=== PATIENT | male | born 1980 | race Caucasian/White ===

== ENCOUNTER → 2017-03-07 | Day surgery (SDC) | payer OTHER ==
[~2017-03-07] VITALS: Ht 177.8 cm; Wt 85.3 kg
[~2017-03-07] MED LIST: MOTRIN800 MG PO
--- NOTE | 2017-03-07 17:09 | RADIOLOGY REPORT ---
EXAMINATION: XR LUMBAR SPINE CLINICAL INFORMATION: Osbaldo- lumbar laminectomy at L5-S1. COMPARISON: Lumbosacral spine done on 01/07/2017. TECHNIQUE: Single crosstable lateral radiograph of the lumbosacral spine was performed at the time of the surgical procedure, done in the OR. FINDINGS: A radiopaque linear devices identified with its tip projecting at the level of spinous process of L5. IMPRESSION: A radiopaque linear devices identified with its tip projecting at the level of the spinous process of L5.
--- NOTE | 2017-03-07 23:30 | Operative Report ---
Operative/Inv Procedure Report Surgery Date: 03/07/17 Name of Procedure: 1) L5-S1 Right Hemilaminotomy And Discectomy (Kwasi/Talisha Yanez) Pre-Operative Diagnosis: Primary Surgically Treated Diagnoses: 1) Right L5-S1 Lumbosacral Intervertebral Disc Disorder With Radiculopathy 2) Right Lower Extremity Distal (Extensor Hallucis Longus And Anterior Tibialis) Subjective And Objective Motor Neurological Deficit 3) Right Lower Extremity Mild Foot Drop 4) Right Lower Extremity Mild Toe Drop 5) S1 Right Lower Extremity Lumbosacral Distribution Radiculopathy (Pain, Motor Deficit And Sensory Deficit) Potentially Now Independent Of Causal Intervertebral Disc Disorder 6) Right Lower Extremity Hypoesthetic Disturbance Of Skin Sensation 7) Right L5-S1 Displacement Of Lumbosacral Intervertebral Disc 8) L5-S1 Degeneration Of Lumbosacral Intervertebral Disc Post-Operative Diagnosis: Same as preoperative diagnosis list Estimated Blood Loss: less than 50ml Surgeon/Furrier Apprentice: NEELA VILLALPANDO MD - Primary Admitting Orthopaedic Surgeon Surgical Providers: Neela Villalpando M.D. - Orthopaedic Spine Surgeon Ashley Yanez P.A.-C - Chargeback Analyst Anesthesia: general endotracheal tube Monitors: Standard general anesthesia and other perioperative monitoring was performed per anesthesia protocols. Refer to anesthesia monitoring records for details. IV Fluids: Standard anesthesia fluid management was performed without requirement for additional or emergent fluid resuscitation. Refer to anesthesia records for details. Implants: Implants Placed: None Graft Placed: None Urine Output: Refer to anesthesia records for details. Drains: None Specimens: Removed lumbar disk fragments were sent to pathology for analysis per hospital protocol. Complications: None Condition: Initial Preoperative Condition: The patients condition was stable to the operating room without vital sign, hemodynamic, cardiopulmonary or other organ system abnormality and without new neurovascular or musculoskeletal functional deficit compared to stable baseline of preoperative distal right lower extremity sensory and motor deficit noted on orthopaedic spine surgical office as well as admission history and physical evaluations. On assessment in the preoperative holding area the patient had some improved motor function and was able to briefly generate 5/5 strength to manual testing against resistance which he had not been able to demonstrate previously. This was likely related to his recent epidural injection. Unfortunately, he still had early giveway of anterior tibialis, extensor hallucis longus and gastrocsoleus against sustained resistance, has persistent, dense and unchanged sensory deficit in the posterolateral distribution to the foot and toes, notes persistent ambulatory and activity limitation and reports steady return to baseline weakness even over the short duration since his epidural injection. He has elected to proceed with discectomy. Given his prolonged deficit with return of weakness since epidural, radiologic findings of significant neural compression and only partial, temporary and insufficient improvement with optimized conservative management, this decision to proceed with surgical intervention is quite reasonable. The patient was cleared preoperatively as optimized for surgery by his primary care physician and consulting facility planner prior to admission. There were no significant adverse changes evident in the patients condition between the clearance admission history & physical evaluations and the immediate preoperative assessment. Intraoperative Condition: The patient was stable throughout the procedure without vital sign, cardiopulmonary or other anesthesia monitoring changes, lability, instability or abnormality. Final Postoperative Condition: The patient was extubated and stable to the recovery room with no new deficit or adverse change compared to stable baseline preoperative neurological and musculoskeletal assessment based on limited evaluation during initial recovery from anesthesia. The patient demonstrated grossly normal spontaneous motion initially as well as later normal motion and function to command in both upper and distal lower extremities once fully awake upon early recovery from anesthesia. On postoperative neurological assessment the patient reported subjective partial improvement compared to his preoperative sensory and motor deficits and this improvement was confirmed on objective sensory evaluation and manual motor testing with improved light touch sensation and sustained 5/5 distal right lower extremity motor function demonstrated even at this early timepoint. There was no swelling, erythema, tenderness, pain with either active or passive motion or any other symptom or finding to suggest a concerning process involving the superficial or deep cutaneous, subcutaneous, muscular, vascular or other tissues related to the immobilization or localized pressure of prolonged prone positioning for surgery. His pain was well controlled during initial recovery. Operative Indication: Danny Garcia is a 37 year old healthy white male who presents today for L5 -S1 right hemilaminotomy, discectomy and neural element decompression to address severe right lower extremity radiating pain, distal numbness and distal EHL/AT weakness with partial footdrop and some claudicating ambulatory worsening of symptoms, mild gait abnormality and additional functional deficits (particularly related to his vigorous activity requirements at work) secondary to large right L5-S1 disk herniation causing significant traversing and exiting neural element compression at that level documented on MRI. This condition became acutely symptomatic several months ago related to and consistent with a reported heavy lifting injury at home. He denies any prior history of severe or incapacitating back pain and has never had any prior radiating symptoms. He does report prior history of mild, activity-related back pain consistent with additional findings of lower lumbar degenerative change on radiologic studies. He was unaware of these findings previously and reports no history of associated trauma, injury, event or change in activity which might be associated. He also reports no previous functional limitation or need for evaluation and treatment related to the chronic degenerative findings. 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 Based on the likely outcome of further nonoperative versus operative treatment, he has very reasonably chosen to proceed with surgical discectomy for decompression. The patient's preoperative lumbar spine radiologic workup (including static and dynamic radiographs as well as MRI scan) showed the above noted severe right canal and lateral recess soft tissue stenosis and neural compression secondary to a very large right L5-S1 extruded disk herniation fragment consistent with the patient's current presenting clinical condition including symptoms ( radiating pain, sensory loss, weakness and ambulatory changes), physical examination findings (objective distal right lower extremity sensory and motor deficits) and functional deficits. The radiologic findings are also consistent with the persistence of his condition and his failure to improve with conservative care. Standard preoperative laboratory studies for this young male patient were unremarkable. The patient has sufficiently severe and progressively worsening clinical condition (symptoms and exam findings listed above) related to this condition, has failed a comprehensive conservative management program despite excellent compliance, has close correlation between clinical presentation and preoperative studies, is medically optimized for surgical intervention, understands and accepts the limitations, uncertainties and risk of surgery, appears to have appropriate goals for surgical outcome, and is more likely to achieve those goals with the planned surgical procedure than with other options for treatment thus making him a reasonable candidate for surgical intervention. The patient has a positive medical history of Prinzmetal's angina with a negative angiogram 10 years ago and no symptoms since that time. He has now had a negative evaluation and full cardiology clearance within the last week for the currently planned surgical procedure. He reports no other significant or pertinent past medical history. He reports no significant past surgical history pertinent to his current surgical treatment. He denies any complications, adverse events or outcomes associated with previous procedures, tests or interventions. His current and active medications include Flexeril, Meloxicam and Gabapentin. He denies any adverse effects from any of these medications. He denies any history of anaphylactic, anaphylactoid, allergic or non-allergic reactions or sensitivities to medications, foods or skin contact environmental allergens. He is a 2 pack per day smoker, reports other smoking history as well (see office notes for details), consumes several highly caffeinated beverages ( "energy drinks") per day and consumes 2-3 beers per day but denies other alcohol consumption, other drug use or other social risk factors. His reported social history is not likely to be significant as it relates to his perioperative or other orthopaedic spine care. The patient has been temporarily totally disabled since his injury and that status will likely continue until he has completed the initial (6 week) recovery phase at which time restricted ("light duty") work return will be considered and he will likely be able to progress back to unrestricted ("full duty") work status by 3 months after surgery. The above clinical information was reviewed throughout the hospital admission and preoperative confirmation process but did not alter surgical recommendations, treatment plans or perioperative management in this case. Treatment options were discussed in detail directly with the patient. After careful and appropriate consideration he elected to proceed with the planned operative procedure of L5-S1 right hemilaminotomy, discectomy and neural element decompression. He also consented to any additional indicated procedure based on intraoperative findings. In addition to the general risks of all surgical procedures (bleeding, infection, anesthesia and other general risks), specific risks of the planned procedure were reviewed with the patient including but not limited to tissue injury or exacerbation of prior injury (spinal cord, nerve root, peripheral nerve, meningeal, blood vessel, bone, disk, joint, muscle, tendon, ligament or other tissue injury), meningeal tear, spinal fluid leak, fracture of spinal elements, worsening of spinal alignment, abnormal ( hypertrophic, heterotopic or ectopic) bone or scar formation, new or persistent- exacerbated symptoms (pain, dysesthesias, paresthesias, headaches), development of new or worsening of preexisting medical conditions or complications ( arthritis, blood clots, cardiac events, stroke, acute organ failure of any organ , other medical conditions potentially worsened by trauma, surgery, anesthesia or immobility), inability to complete the procedure as planned, and need for reoperation at the current or a future related site (including possible surgeries for degenerative processes documented at the current and adjacent lumbar levels). Potential for partial or complete, global or regional loss of motor, sensory, coordination, ambulatory, balance, bladder, bowel or sexual function was reviewed. Remaining potential complications were reviewed in inclusive risk categories ranging through all severity levels from temporary changes to catastrophic outcomes such as complete paralysis, organ failure, disfigurement or . The patient understood and accepted that his risk was slightly above average for this procedure compared to his age and clinical cohort due to his severity of pre-operative symptoms, significant and progressive pre-operative subjective and objective right lower extremity deficits, severity of neural element compression on MRI and the post-traumatic nature of his condition with potential long-term and as yet occult involvement of other levels and structures. He also understood that his risk of personally significant functional limitation following surgery was higher than most patients because of multilevel (albeit mild to moderate) degenerative disease at his young age, his vigorous desired level of baseline activity and the vigorous level of function required for his job. On the other hand, his average frame and body habitus with history of excellent exercise compliance likely mitigates some of this increased risk. He also understood and accepted that the purpose of surgery is to minimize the chance for further progression of symptoms and neurological deficit and that his current preoperative deficits may be permanent. The patient is an active smoker and the potentially severe implications of continued smoking on surgical recovery, functional recovery and general health were reviewed in detail. Signed operative consent was obtained directly from the patient with good understanding of all reasonable alternatives, indications, goals, expectations, limitations, risks and benefits of the planned procedure. He consented to all phases of the procedure being performed by Dr. Villalpando with the assistance of all designated hospital and outpatient practice team members. He was cleared preoperatively as optimized for surgery by his primary care physician (Lilia Cool M.D.), all requested consulting medical subspecialists including his new facility planner (Kolby Cardenas M.D.) and primary surgeon office evaluation prior to admission. Preoperative arrangements were made to follow all clearance evaluation recommendations. In the preoperative evaluation area, the patient confirmed his oral intake status as NPO since midnight prior to surgery. Operative/Procedure Note Note: Preoperative Holding Area Assessment/Preparation: The patient was evaluated in the preoperative holding area prior to surgery and no clinical changes or contraindications to surgical intervention were documented compared to the preoperative office and clearance evaluations except as noted in the "Initial Preoperative Condition" section above. There were no multiple, bilateral or sacral root distribution sensory, motor, coordination, ambulatory or other functional changes reported and no sensory, motor or abnormal reflex findings noted on preoperative examination to suggest acute increase in neural element compression that might be associated with increased neurological intraoperative risk based on preoperative assessment. The surgical plan and site were confirmed with the patient and preoperative paperwork was finalized. The region of the intended surgical site was cleansed, prepped and marked per protocol. The primary surgeon, anesthesia care team members, and operating room staff confirmed the patient identity, surgical procedure, and operative site as well as other clinical details with the patient in an initial documented preoperative confirmation (awake time out) prior to the administration of sedation or anesthesia. Surgical Procedure: The procedure was performed by Dr. Villalpando who was present and served as the primary surgeon for all critical intraoperative and perioperative decisions and interventions. The assistance of a specialty trained surgical physician pier master assistant was critical for safe completion of all phases of the procedure, particularly for maintenance of clear visualization in the operative field and for protected neural element retraction. Ashley Yanez P.A.-C assisted throughout each critical phase of the procedure. Set-Up/Positioning/Exposure - The patient was brought to the operating room in stable condition and underwent uncomplicated induction of general anesthesia, intubation, and placement of all appropriate monitors, lines and catheters without difficulty. Administration of 2 grams of IV Ancef based on patient body mass was given for surgical prophylaxis and was completed at least 30 and less than 60 minutes prior to making an incision. The patient was positioned prone on the standard operating table outfitted with a rigidly attached Cloward frame in typical fashion for a lower lumbar discectomy taking care to protect and stabilize the spine during transfer, avoid positions of nerve stretch, pad all pressure points, and support the head without any pressure on the eyes using a foam head rest. In this case, in order to accommodate the patient's specific upper body anatomy, a rolled blanket was placed transversely under the chest which provided additional torso elevation and in turn allowed optimized neutral head and neck positioning. The arms were abducted less than 90 degrees at the shoulders, flexed less than 90 degrees at the elbows and supported on well-padded arm-boards with additional foam padding from the axillary regions to the hands with all pressure points either fully padded or supported without any contact at all between pads. The primary surgeon, anesthesia care team, and operating room staff again documented the patient identity, surgical procedure, and operative site as well as other clinical details in a final documented confirmation (final time out) prior to beginning the procedure. Loupe magnification was used throughout the appropriate portions of the procedure. After sterile prep and drape, an incision was mapped, infiltrated with 0.5% Marcaine local anesthetic with epinephrine, and made extending longitudinally from the superior tip of the S1 spinous process to the superior tip of the L5 spinous process overlying the intended L5-S1 operative level. Hemostasis was achieved using Bovie and Bipolar electrocautery beginning with the incision and continuing throughout the procedure with settings appropriate to each progressive level. The lumbosacral fascia was divided over the right side of the L5 and superior S1 spinous process tips as well as the bridging interspinous ligament segment using the Bovie electrocautery which was also used to maintain hemostasis throughout the exposure. Care was taken to preserve the interspinous ligament so as to maintain optimal postoperative stability and motion segment ligamentous tension. The dissection was then carried down the right side of the middle and inferior L5 spinous process, the interspinous space and the superior margin of the S1 spinous process and then extended laterally to expose the corresponding laminae and interlaminar space at that level out to the medial edge of the right L5-S1 facet capsule which was preserved. The Franklin retractor was placed with lateral blunt serrated ("toothed") blade and medial interspinous hook of appropriate length to provide optimal retraction and visualization. The intended hemilaminotomy and discectomy level was marked with a curved curette placed under the inferior leading edge of the superior lamina and confirmed to be at the intended interspace on cross-table lateral radiograph. Intraoperative findings of multilevel lower lumbar moderate degenerative disk disease correlated well with the preoperative radiographic studies and no obvious interval change or additional abnormality was noted. The alignment of the spine on this intraoperative localization radiograph was noted to be normal and unchanged from preoperative studies. Hemilaminotomy/Discectomy/Decompression - The lateral margin of the right pars interarticularis of L5 was identified so as to ensure that the hemilaminotomy was tapered sufficiently to avoid thinning or destabilization of this region. Right L5 inferior hemilaminotomy was performed by thinning the inferior edge of the right L5 lamina in a tapered fashion using the [employer] Subhash drill followed by piecemeal resection of the deep laminar cortex using Kerrison rongeurs after dissecting under the leading edge with a curved curette to free any underlying adhesions. The inferior right hemilaminotomy of L5 was sufficient to adequately and safely access and decompress the right side of the canal at the L5-S1 level in this case and so no additional interlaminar hemilaminotomy (with resection of the superior margin of S1) was required. The L5 hemilaminotomy was carried out laterally to the level of the medial margin of the facet superficially and to the level of the medial wall of the S1 pedicle within the canal taking care not to violate the posterior facet capsule or excessively thin the pars interarticularis. This dissection provided sufficient canal access in this patient such that no partial medial facetectomy was required for additional exposure. The cephalad edge of the ligamentum flavum was dissected from its laminar attachment and elevated with a curved curette to ensure that there were no epidural adhesions dorsally. The ligamentum was further released laterally and reflected medially providing sufficient access to the canal and room for nerve mobilization to allow safe removal of the very large disk fragment. A #2-0 Vicryl suture was placed through the freed lateral edge of the ligament, tagged with a snap and used to retract the elevated ligamentum medially in a "ligamentum sparing" technique. This provided excellent exposure of the canal with full visualization and safe access to the elevated and compressed lateral thecal sac and traversing nerve root at this level while preserving the ligamentous flap which was returned to its anatomic position as a physiologic covering of the laminotomy opening at the end of the procedure. Attention was then turned to the perineural dissection and safe mobilization of the neural elements for exposure of the compressive disk herniation. On initial visual evaluation, the traversing nerve root and lateral thecal sac were seen to be obviously dorsally displaced and flattened ventrally by passage over the large underlying herniated disc fragment which appeared to have both significantly extruded into the canal (associated with direct traversing neural structure meningeal contact) and also partially migrated in a pocket beneath the posterior longitudinal ligament behind the L5 and S1 vertebral bodies ( associated with indirect exiting neural element compression) consistent with the preoperative clinical presentation and MRI findings. The direct contact of the disk material with the meninges was associated with focal areas of ventrolateral nerve root erythema, inflammation and irritation suggestive of chemical as well as compressive radiculopathy and consistent with the severity, chronicity and poor response to conservative measures of the patient's symptoms confirming the indications for surgery. All of these findings also suggested that improvement would have been unlikely with further conservative management and without surgical intervention. The large size of the extruded disk herniation fragment with extension outside of the normal confines of the disk space and even some migration beyond the motion segment behind the vertebral body along with its chronicity and inflammatory response was associated with moderate epidural fibrosis and therefore necessitated more extensive dissection (and consequently more careful and extensive protection of the neural elements) as well as more operative time than usual for a typical discectomy procedure. Although neurolysis was felt to be significantly increased compared to the average, the fibrotic adhesions did not appear to cause separate tethering or compression of the neural elements, and therefore this additional dissection was still deemed to be consistent with a standard discectomy procedure. No separately coded neurolysis procedural service was required in this case. Gentle palpation and careful dissection with a [place] 4 and limited epidural neurolysis was sufficient to safely mobilize the neural elements, optimally access the more ventral large extruded disk fragment in the lateral recess and safely perform decompressive discectomy. A [place] 4 was used to dissect down the superomedial wall of the S1 pedicle to the floor of the canal thus defining a safe plane for dissection and neurolysis where necessary. This dissection was then carried superiorly where the disk space was identified and gently dissected free of adhesions over the top of the extruded disk herniation covered with an adherent but not tethering fibrotic capsule. A safe plane was identified lateral to the traversing nerve root just above the S1 pedicle, caudal to the extent of extruded disc fragment and epidural fibrosis. Dissection was then carefully carried superiorly within that safe dissection plane to fully free the traversing root from the disk herniation and fibrous capsule so as to adequately mobilize it for retraction. The traversing nerve was found to be under considerable tension during dissection based on intraoperative palpation and so care was taken to avoid excessive retraction and debulk the underlying compressive disk fragment as soon as adequate neural protection and disk fragment exposure had been achieved. Once this had been safely achieved the dissection was carried medially over the large extruded fragment until the traversing root could be retracted sufficiently to access the exposed tail of the extruded portion of the herniation fragment projecting through a rent in the encasing fibrotic capsule and causing direct neural contact. After initial dissection and neural element mobilization this dorsolateral projection of the extruded disc herniation fragment was visualized and gently manipulated through the rent in the fibrotic capsule until the primary extruded fragment could be debulked from its encapsulated position using a pituitary rongeur. Ultimately, a majority of the large extruded fragment was removed from the fibrotic pocket in two large pieces (each approximately 15 x 8 x 3 mm in size). This fragment resection resulted in visible decompression of the previously elevated traversing root and thecal sac. This debulking allowed further careful perineural dissection all the way to the ventral midline with significantly less tension on the traversing neural elements thus minimizing risk of injury. The axilla of the traversing root was checked and no fibrotic tethering was found that might cause acute angle "kinking" or other focal compression at the exit of the nerve from the thecal sac. Thus there was no significant dissection required in the axillary zone. With the perineural dissection, neurolysis and resection of extruded fragment complete, the neural elements could be safely further retracted so as to allow extension of the traumatic annulotomy followed by final discectomy of any remaining disk herniation fragments and all loose intradiscal fragments using standard technique. Epidural hemostasis was achieved using Bipolar electrocautery and gentle packing of the epidural space with small volume of Thrombin soaked Gelfoam held with Patties which also provided some medial retraction of the neural elements for optimal exposure of the disk space. The traversing nerve root and thecal sac were gently retracted with a Love nerve root retractor to expose the disk space while protecting the neural elements. The subligamentous pocket formed behind the L5 and S1 vertebral bodies by the dissecting portion of the large disk fragment was explored using an Brianna curette to ensure that there were no additional sequestered fragments and none were found. A minimal linear extension of the traumatic annulotomy was performed using a # 11 scalpel blade to optimize disk space access. Interspace discectomy was then performed to remove a few loose intervertebral disc fragments using straight and angled pituitary rongeurs taking care to carry the discectomy laterally within the disk space ventral to the foramen so as to completely decompress both the intra- and extra-foraminal spaces, in addition to the lateral recess and central canal. The disk material was found to be structurally normal in this subforaminal zone. All loose or non-physiologic disk material was removed from all disk space zones while preserving as much palpable structurally intact disk as possible. Only a few small fragments were removed from the central and lateral regions and no large or compressive loose fragments were found either centrally or laterally. By palpation the large resected herniation fragment left a moderate-sized right paracentral defect in the disk space, however the remainder of the adjacent disk material, although degenerative and somewhat fibrotic in consistency (correlating with radiologic findings), was overall of fairly normal integrity by palpation and there were no nucleus, annulus or cartilaginous endplate defects palpated adjacent to the central defect or in the peripheral zones. Once the discectomy was completed, an Brianna curette and nerve hook were used to gently sweep under the retracted traversing nerve root and thecal sac to ensure that there was clear passage within the ventral epidural space with no residual extravasated or sequestered disk fragments found. A Unda dental instrument was then gently passed out the upper and lower foramina without evidence of any foraminal narrowing, stenosis or nerve root compression of either the exiting or the traversing roots. Therefore, no osseous foraminotomy, foraminal soft tissue decompression or lateral root neurolysis dissection was required. Mild irritability, hyperactive neural firing and muscular contraction was noted during neurolysis, neural element mobilization and decompressive discectomy of the large extruded disk fragment. This was consistent with the degree of compression and irritation seen both on preoperative MRI and intraoperative inspection. All hyperactive responses resolved immediately following decompression and no further abnormal activity was noted during the remainder of the procedure. Hemostasis of osseous and epidural bleeding was achieved using Thrombin soaked Gelfoam and paddies gently applied and removed by irrigation with all bleeding controlled. Bleeding from the laminectomy edge was controlled with small amount of bone wax applied using the back of a [place] with any residua removed. Closure/Recovery - The surgical site was thoroughly irrigated and hemostasis was carefully achieved prior to closure. The retracting suture was removed from the spared ligamentous flap which was gently returned to its anatomic position overlying the lateral thecal sac and traversing root. A piece of Gelfoam matching the size of the laminotomy defect was placed over the dorsal surface of the ligamentum to minimize epidural fibrotic adhesions to the decompressed neural elements. The surgical site was found to be dry at the end of the procedure and consequently no drain was needed. Initial counts were correct prior to closure. The lumbar fascial layer was reapproximated to the spinous process and trans- spinous portions of the preserved midline interspinous ligament in a side-to- side closure using #0 Vicryl interrupted, [id number] suture technique. The deep suprafascial closure was performed with #2-0 Vicryl interrupted, simple suture technique. The superficial subcutaneous and subcuticular layers were closed with #3-0 undyed Vicryl inverted, interrupted, simple sutures. The skin was further reapproximated and protected against tension using Steri-Strips applied with Mastisol. A standard, sterile small island dressing was placed with good coverage. All counts were correct prior to removing the drapes. The patient was turned into the supine position on the hospital bed using careful log-roll technique, avoiding torsional stress and stabilizing the lumbar region during transfer. He was then extubated in the operating room without difficulty. Recovery Room Assessment: The patient was transported to the recovery room in stable condition where gross neurological examination showed normal function with no deficits or worsening compared to his pre-operative assessments on initial recovery from anesthesia. In fact, the patient reported subjective improvement in both his right distal lower extremity sensory and motor function. His sensory deficit was readily confirmed by objective testing to be noticeably partially improved ( by approximately 50%) compared to preoperative assessment. His motor strength had been essentially normal preoperatively to manual resistance muscle testing and so was more difficult to document objectively however he did seem to have less early fatigue with anterior tibialis and extensor hallucis longus testing postoperatively and clearly felt subjectively that his distal right lower extremity strength was improved during resistive testing. The patient will follow the usual postoperative protocol for lower lumbar decompressive discectomy with some adjustments and accommodations made to the standard protocol because of the degree of preoperative neurological deficit, size of the patient's herniation fragment, moderate degenerative changes at a young age, work requirements and desire to return to a high level of function including vigorous work and recreational activities. His postoperative care plan will include early mobilization, oral medication pain control and same day home discharge planning with instructions to mobilize frequently but to avoid lumbar motion or prolonged unsupported upright sitting. Primarily because of his concomitant moderate degenerative disk disease he will use a supportive, four quadrant buttressed, circumferential compression brace during the initial phase of healing for both stability and some distraction so as to optimize fibrous intervertebral disk space stabilization and healing. Lower extremity ( particularly gentle hip and knee) motion is encouraged to promote longitudinal nerve motion and minimize fibrous neural tethering during the fibrous consolidation and motion segment stabilization healing phase. Outpatient rehabilitation program will be arranged through the office to begin slowly but progressively at approximately 4 weeks after surgery assuming standard and uncomplicated postoperative course and following clearance at initial postoperative follow-up assessment. Findings: 1) Large, extruded and partially migrated, very compressive disk herniation fragment was identified significantly elevating, compressing and irritating the overlying traversing and exiting neural elements. The extruded portion was associated with direct contact with the traversing neural elements including the lateral thecal sac and S1 nerve root. 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 All of these findings are consistent with the preoperative clinical presentation and radiologic findings. 2) Moderate neurolysis, increased compared to average but still consistent with standard range of discectomy procedures, was required to safely retract and protect the neural elements for discectomy and decompression. After neurolysis and safe mobilization of the neural elements, all compressive disk herniation fragments were removed with return of all neural elements to their normal uncompressed and undeviated position. The disk space was then explored to remove the few remaining small loose and nonviable fragments. A "ligamentum sparing" technique was used with the ligamentous flap returned to its normal position in the laminotomy defect at the end of the procedure to provide a physiologic protective layer against fibrosis. 3) No partial facetectomy or foraminotomy was required for additional decompression in this case. Full central canal, lateral recess and foraminal decompression was documented by intraoperative visual assessment and palpation at the end of the procedure. 4) Partial return of left distal lower extremity sensory and motor function was subjectively noted by the patient and objectively confirmed by physical examination in the recovery room on early postoperative evaluation. Discharge Disposition: PACU Additional Comments: The patient will be admitted to the Same Day Surgery Observation area on Dr. Villalpando's orthopaedic spine surgery service once he has been cleared by anesthesia recovery room assessment. The preoperative plan is for same day discharge to home once he meets appropriate criteria. If the patient has difficulty with pain control or meeting discharge criteria by late afternoon or early evening then arrangements will be made for 23 hour overnight observation in a room on the [facility] surgical floor with plan for discharge on the morning following surgery. Standard postoperative protocol for lumbar hemilaminotomy, neurolysis and discectomy will include: Continued perioperative antibiotic coverage for a total of 16 hours (1 preoperative dose as described above and 1 postoperative, pre-discharge dose of Ancef 2 grams IV 8 hours after the initial dose). If the patient stays in the hospital overnight for observation then a third perioperative dose of Ancef (2 grams IV 8 hours the first postoperative dose) will be given. The patient will use his lumbosacral circumferential compression brace (which will be dispensed from the office) most of the time when he is out of bed but may remove it to take breaks and for hygiene. Even when the brace is in place, but particularly when the brace is off, the patient is cautioned to minimize lumbar motion and prolonged unsupported upright sitting. This level of brace use and motion limitation will continue until his first postoperative visit at which time future need for bracing will be assessed and he should be able to wean its use first for normal functions and then for more vigorous activities as he strengthens with a standardized outpatient physical rehabilitation therapy program. It is not necessary for him to use the brace constantly nor when he is sleeping although he may use it at night for comfort if he so chooses. The patient will be instructed on and follow standard protocols regarding lumbar surgical site care, showering and daily dressing changes following shower starting on postoperative day #2. The patient will be mobilized in the postoperative observation area with nursing supervision within several hours of arrival to the recovery room. Home discharge planning will also be initiated at that time. Inpatient physical therapy will not likely be necessary as long as he is able to demonstrate comfortable independent mobilization prior to discharge. Formal therapy consultation evaluation will be requested on the afternoon of surgery prior to discharge if the patient has difficulty with early mobilization, requires larger than usual or excessively sedating levels of pain medication, requires significant ambulatory aide, or requires specialized assessment to facilitate home discharge planning for safe basic independent home functions. The primary plan will be for home discharge during the afternoon following surgery shortly following his postoperative IV dose of antibiotics as described above. The patient is encouraged to minimize lumbar motion, lifting, carrying, pushing, pulling and prolonged unsupported upright sitting (longer than for meals) particularly during the first 6 weeks postoperatively. Advance normal diet as tolerated and without any required restrictions. Balanced diet is recommended to support optimal surgical site and osseous healing. If any significant adverse GI symptoms develop then reduce diet and contact surgeon. The patient is at low perioperative thromboembolic risk and does not require any pharmacologic prophylactic treatment in this regard as long as he mobilizes early and frequently with lower extremity motion exercises and ambulation. Sequential compression devices will be used throughout the patient's hospitalization. Contact Dr. Villalpando in the unlikely event that the patient is unable to mobilize adequately by several hours after surgery or develops significant signs suggesting that atypical prophylaxis might be necessary. Assuming standard hospital course: Discharge planning for home discharge can begin within a few hours following surgery once the patient has fully recovered from anesthesia. The patient will be discharged with the following prescriptions: Narcotic Pain Medication: Oxycodone/Acetaminophen 5/325 mg 1-2 PO q4-6 hours prn pain (#40, No Refill) Benzodiazepine Muscle Relaxant Medication: Diazepam 5 mg 1-2 PO q8 hours prn spasm (#30, No Refill) The patient was instructed not to drive for at least the first 2 weeks postoperatively and given recommendations regarding short distance driving thereafter only if he no longer requires a brace, has good pain control without the need for narcotic or other sedating medication, and has met all DMV criteria for safely operating his specific motor vehicle. He understands and agrees that the ability to safely operate a motor vehicle can only be determined by the patient and that he accepts all responsibility for such activity regardless of symptoms or functional limitations which may be associated with his condition and/or postoperative status. Initial postoperative follow-up evaluation was scheduled for the patient prior to surgery and should be approximately 10-14 days postoperatively at which time his surgical site will be checked and his early response to surgery will be assessed. Outpatient physical therapy as well as other plans and arrangements will be made at that time along with a schedule for graded return to more normal activities. The patient may return to non-vigorous activities as tolerated based on symptoms and requirement for sedating medications. He is cautioned regarding unsupported upright sitting particularly for home computer use or light duty work and is encouraged to support his lumbar region in a slightly reclined and cushioned position whenever prolonged sitting is required. He will not likely be ready for prolonged unsupported sitting or more vigorous activities until he has completed at least the initial phase of outpatient postoperative rehabilitation program approximately 2-3 months from now, although the specific timing will depend on his standard lumbar discectomy postoperative assessments. He may be able to return to vigorous activities and sports in a graded and progressive fashion starting at 3 months after surgery but this will again depend on postoperative assessments and progress with initial therapy. Additional advanced therapy programs may be required for full activity return depending on specific patient goals particularly given the known degenerative changes already documented on radiologic studies in this patient and the higher level activity requirements of his job. Anterior-posterior and lateral lumbar spine radiographs will be performed (without the brace in place) at the 6 week follow-up evaluation unless indicated earlier. Additional postoperative follow- up radiographs will not likely be required unless persistent symptoms limit achievement of all return to activity and function goals. His degenerative disk condition warrants more chronic radiologic follow-up if he is symptomatic but otherwise additional radiographs can be performed on an as needed basis. The patient already has Dr. Harding office contact information and will again be given the office phone number along with home care instructions prior to discharge. He is encouraged to call for any questions or concerns and particularly for any significant or prolonged fever or incisional drainage, erythema or swelling as well as for any pronounced lower extremity neurological changes. CC: KWASI VILLEGAS,NEELA Stein
== END ==
LOC: STS 01:23
DX: M51.17 Intervertebral disc disorders with radiculopathy, lumbosacral region (principal); M21.371 Foot drop, right foot; M51.27 Other intervertebral disc displacement, lumbosacral region; M51.37 Other intervertebral disc degeneration, lumbosacral region; M62.89 Other specified disorders of muscle; F17.200 Nicotine dependence, unspecified, uncomplicated
CPT/HCPCS: 72020; 80307; 88304; J0131; J0690; J2250